=== PATIENT | male | born 1950 | race Two or more races ===

== ENCOUNTER 2019-11-13 06:00 | Day surgery (SDC) | payer OTHER ==
[~2019-11-13] VITALS: Ht 175.3 cm; Wt 87.5 kg
[2019-11-14] MEDS ORDERED: HYOSCYAMINE0.125 M1 SL (15:56)
== END 2019-11-14 08:00 | disposition home or self-care (01) ==
LOC: CIR.AMB 06:00 → SURG 07:00 → EDSTATUS 11:15 → SURG 11:15 → O/R 11:37 → SURH 11:37 → CIR.AMB 11-14 08:00 → SURH 11-14 17:52
DX: D12.8 Benign neoplasm of rectum (principal); I49.5 Sick sinus syndrome